=== PATIENT | female | born 1945 | race Caucasian/White ===

== ENCOUNTER 2018-05-21 04:25 | Emergency (ER) | payer MEDICARE ==
[2018-05-21 04:34] VITALS: BMI 22.2
[2018-05-21 04:39] VITALS: RESP 18
--- NOTE | 2018-05-21 05:04 | ED PDOC ---
Arrival/HPI - General Historian: Patient - History of Present Illness Time/Duration: 1-3 hours Symptom Onset: Sudden Activities at Onset: Light Context: Home <Batsheva Olivas - Last Filed: 05/21/18 06:23> <Diaz Collins DO - Last Filed: 05/22/18 11:11> - General Chief Complaint: Finger,Hand,&Wrist Time Seen by Provider: 05/21/18 04:29 - History of Present Illness Narrative History of Present Illness (Text): 05/21/18 05:00 This is a 72 year old female with PMH of HT, OA, fibromyalgia, carpal tunnel syndrome, 3 herniated discs and vertigo presenting to the ER for blue discoloration and swelling of her right hand thumb. Patient states she noticed her thumb swollen, tender and discolored and has no recollection of inciting event or trauma. She took aspirin when symptoms began. She states symptoms have improved since noticing her thumb earlier today. She denies CP, SOB, fevers, nausea, abdominal pain, back pain, urinary complaints, recent sickness, and chills. PMD is Carrol Monreal ([email or web address]) Past Medical History - Provider Review Nursing Documentation Reviewed: Yes - Cardiac Hx Hypertension: Yes Hx Mitral Valve Prolapse: Yes Hx Peripheral Edema: Yes (1 YR AGO) - Pulmonary Hx Bronchitis: Yes - Neurological Hx Vertigo: Yes - HEENT Hx Cataracts: Yes - Renal Other/Comment: KIDNEY CYST LEFT - Integumentary Other/Comment: DRY SKIN - Musculoskeletal/Rheumatological Hx Fractures: Yes (VETEBRAE) Hx Herniated Disk: Yes (LUMBAR) Hx Osteoarthritis: Yes Hx Osteoporosis: Yes Other/Comment: FIBROMYALGIA CARPAL ANDREW BILAT - Genitourinary/Gynecological Other/Comment: URINARY FREQUENCY DROPPED BLADDER - Psychiatric Hx Substance Use: No - Surgical History Hx Hysterectomy: Yes (1989) Other/Comment: OOPHORECTOMY ECTOPIC PREG - Anesthesia Hx Anesthesia: Yes Hx Anesthesia Reactions: Yes (NAUSEA VOMITTING) Hx Malignant Hyperthermia: No <Batsheva Olivas - Last Filed: 05/21/18 06:23> Family/Social History - Physician Review Nursing Documentation Reviewed: Yes Family/Social History: Unknown Family HX Smoking Status: Never Smoked Hx Alcohol Use: No Hx Substance Use: No <Batsheva Olivas - Last Filed: 05/21/18 06:23> Allergies/Home Meds <Bathseva Olivas - Last Filed: 05/21/18 06:23> <Diaz Collins DO - Last Filed: 05/22/18 11:11> Allergies/Adverse Reactions: Allergies Penicillins Allergy (Verified 05/21/18 04:38) RASH Home Medications: Home Meds Medication Instructions Recorded Confirmed Atenolol 25 mg PO DAILY 03/13/14 05/21/18 Losartan Potassium 100 mg PO DAILY 03/13/14 05/21/18 Aspirin [Aspir 81] 81 mg PO DAILY 03/17/14 05/21/18 Hydrochlorothiazide [Microzide] 12.5 mg PO DAILY 05/21/18 05/21/18 Review of Systems - Physician Review All systems were reviewed & negative as marked: Yes - Review of Systems Constitutional: Normal. absent: Fevers Eyes: Normal ENT: Normal Respiratory: Normal. absent: SOB Cardiovascular: Normal. absent: Chest Pain Gastrointestinal: Normal. absent: Abdominal Pain, Nausea, Vomiting Genitourinary Female: Normal. absent: Dysuria Musculoskeletal: Normal Skin: Other (right hand thumb swelling and discoloration) Neurological: Normal Psychiatric: Normal <Batsheva Olivas - Last Filed: 05/21/18 06:23> Physical Exam Vital Signs Reviewed: Yes Temperature: Afebrile Blood Pressure: Hypertensive Pulse: Regular Respiratory Rate: Normal Appearance: Positive for: Well-Appearing, Non-Toxic, Comfortable Pain Distress: None Mental Status: Positive for: Alert and Oriented X 3 - Systems Exam Head: Present: Atraumatic, Normocephalic Pupils: Present: PERRL Extroacular Muscles: Present: EOMI Conjunctiva: Present: Normal Mouth: Present: Moist Mucous Membranes Neck: Present: Normal Range of Motion Respiratory/Chest: Present: Clear to Auscultation, Good Air Exchange. No: Respiratory Distress, Accessory Muscle Use Cardiovascular: Present: Regular Rate and Rhythm, Normal S1, S2. No: Murmurs Abdomen: Present: Normal Bowel Sounds. No: Tenderness, Distention, Peritoneal Signs Back: Present: Normal Inspection Upper Extremity: Present: Normal Inspection. No: Cyanosis, Edema Lower Extremity: Present: Normal Inspection. No: Edema Neurological: Present: GCS=15, CN II-XII Intact, Speech Normal Skin: Present: Warm, Other (right hand thumb has swelling at the MCP and DIP joints and blue discoloration ). No: Rashes Psychiatric: Present: Alert, Oriented x 3, Normal Insight, Normal Concentration <Batsheva Olivas - Last Filed: 05/21/18 06:23> Vital Signs Temp Pulse Resp BP Pulse Ox 05/21/18 09:19 98 F 86 18 140/90 98 05/21/18 07:23 98.1 F 92 H 18 149/91 H 99 05/21/18 04:38 98.4 F 88 18 168/97 H 98 Medical Decision Making <Batsheva Olivas - Last Filed: 05/21/18 06:23> - Transfer of Care Patient signed out to Dr:: Misbah Other: pending labs, UA and CT <Diaz Collins DO - Last Filed: 05/22/18 11:11> ED Course and Treatment: 05/21/18 05:06 Impression: This is a 72 year old female with PMH of OA, fibromyalgia, carpal tunnel syndrome, and 3 herniated discs presenting to the ER for blue discoloration and swelling of her right hand thumb. Differential not limited to: Right hand thumb fracture vs embolism vs cellulitis vs osteomyelitis Plan: -Right hand thumb xray -PT/PTT -CT right upper extremity Progress: (Batsheva Olivas) - Lab Interpretations Lab Results: 05/21/18 05:56 05/21/18 05:56 Lab Results 05/21/18 05:56: PT 11.5, INR 1.00, APTT 31.4 05/21/18 05:56: WBC 8.6, RBC 4.63, Hgb 13.8, Hct 39.3, MCV 84.9, MCH 29.8, MCHC 35.1, RDW 12.2, Plt Count 272, MPV 9.5, Gran % 80.2 H, Lymph % (Auto) 14.4 L, [place] % (Auto) 5.1, Eos % (Auto) 0.1 L, Baso % (Auto) 0.2, Gran # 6.92 H, Lymph # (Auto) 1.2, [place] # (Auto) 0.4, Eos # (Auto) 0.0, Baso # (Auto) 0.02 05/21/18 05:56: Sodium 141, Potassium 3.4 L, Chloride 99, Carbon Dioxide 29, Anion Gap 17, BUN 16, Creatinine 0.7, Est GFR ( Amer) > 60, Est GFR (Non- Af Amer) > 60, Random Glucose 114 H, Calcium 9.4, Total Bilirubin 0.6, AST 35, ALT 20, Alkaline Phosphatase 78, Total Protein 7.7, Albumin 4.6, Globulin 3.2, Albumin/Globulin Ratio 1.4 - RAD Interpretation Radiology Orders: 05/21/18 04:59 HAND RIGHT THUMB [RAD] Stat 05/21/18 05:34 EXT UPPER WITH CONTRAST RIGHT [CT] Stat - PA / HISTORIC SITE ADMINISTRATOR / Resident Statement / has reviewed & agrees with the documentation as recorded. / has examined the patient and agrees with the treatment plan. <Batsheva Olivas - Last Filed: 05/21/18 06:23> Disposition/Present on Arrival - Present on Arrival History of DVT/PE: No History of Uncontrolled Diabetes: No Urinary Catheter: No History of Decub. Ulcer: No History Surgical Site Infection Following: None <Batsheva Olivas - Last Filed: 05/21/18 06:23> - Present on Arrival Any Indicators Present on Arrival: No - Disposition Have Diagnosis and Disposition been Completed?: Yes Disposition Time: 07:00 <Diaz Collins DO - Last Filed: 05/22/18 11:11> - Disposition Diagnosis: Superficial bruising of finger Disposition: HOME/ ROUTINE Condition: STABLE Discharge Instructions (ExitCare): Contusion (DC) Forms: [employer] (Slovenian)
[2018-05-21 06:21] LABS: BASO # 0.02 K/mm3 (0.0-2.0); BASO % 0.2 % (0.0-3.0); EOS % 0.1 % (1.5-5.0); GRAN # 6.92 (1.4-6.5); GRAN % 80.2 % (50.0-68.0); HEMOGLOBIN 13.8 g/dL (12.0-16.0); LYMPH # 1.2 (1.2-3.4); LYMPH % 14.4 % (22.0-35.0); MEAN CELL VOLUME 84.9 fl (80.0-105.0); MEAN CORPUSCULAR HEMOGLOBIN 29.8 pg (25.0-35.0); MEAN CORPUSCULAR HGB CONC 35.1 g/dl (31.0-37.0); MEAN PLATELET VOLUME 9.5 fl (7.0-11.0); MONO # 0.4 (0.1-0.6); MONO % 5.1 % (1.0-6.0); RBC 4.63 10^6/uL (3.5-6.1); RED CELL DISTRIBUTION WIDTH 12.2 % (11.5-14.5); WHITE BLOOD COUNT 8.6 10^3/ul (4.5-11.0)
[2018-05-21 06:31] LABS: PARTIAL THROMBOPLASTIN TIME 31.4 Seconds (25.1-36.5); PROTHROMBIN TIME 11.5 SECONDS (9.4-12.5)
[2018-05-21] MEDS ORDERED: Iohexol 350 MG/100 ML VIAL ONE (06:42)
[2018-05-21 06:48] LABS: ALB/GLOB RATIO 1.4 (1.1-1.8); ALBUMIN 4.6 g/dL (3.0-4.8); ALT/SGPT 20 U/L (7-56); AST/SGOT 35 U/L (14-36); BLOOD UREA NITROGEN 16 mg/dL (7-21); CALCIUM 9.4 mg/dL (8.4-10.5); GFR AFRICAN-AMERICAN > 60; GFR NON-AFRICAN AMERICAN > 60
--- NOTE | 2018-05-21 07:12 | ED PDOC ---
Physical Exam Vital Signs Temp Pulse Resp BP Pulse Ox 05/21/18 07:23 98.1 F 92 H 18 149/91 H 99 05/21/18 04:38 98.4 F 88 18 168/97 H 98 Medical Decision Making ED Course and Treatment: 05/21/18 07:11 Case endorsed to me by Dr. Collins. Patient is a 72 year old female with PMH of HTN, OA, fibromyalgia, and carpal tunnel syndrome who presented to the ER for blue/purple discoloration and swelling of her right hand thumb. Patient states she noticed her thumb swollen and discolored and has no recollection of inciting event or trauma. Currently pending CT of the right hand. 05/21/18 09:10 FINDINGS: There is no osseous fracture. No lytic or blastic osseous lesion is appreciated. Please note that the examination was not performed as an arteriogram and sensitivity for detection of arterial filling defect is limited. No gross vascular abnormality is appreciated. There is no soft tissue mass or fluid collection identified. IMPRESSION: Unremarkable examination. Please note that the examination is of limited sensitivity for detection of peripheral digital vascular embolus. Patient re-evaluated, volar aspect only with ecchymosis, nontender, motor and ROM intact. Patient states the bruising has improved while she has been in the ED. Sensation intact. Patient notes she bruises spontaneously on her legs sometimes. Will discharge, patient states she can follow up with her PMD, instructed to return to the ED immediately for worsening pain, bruising, black/ green discoloration, or any other problem. - Lab Interpretations Lab Results: 05/21/18 05:56 05/21/18 05:56 Lab Results 05/21/18 05:56: PT 11.5, INR 1.00, APTT 31.4 05/21/18 05:56: WBC 8.6, RBC 4.63, Hgb 13.8, Hct 39.3, MCV 84.9, MCH 29.8, MCHC 35.1, RDW 12.2, Plt Count 272, MPV 9.5, Gran % 80.2 H, Lymph % (Auto) 14.4 L, [place] % (Auto) 5.1, Eos % (Auto) 0.1 L, Baso % (Auto) 0.2, Gran # 6.92 H, Lymph # (Auto) 1.2, [place] # (Auto) 0.4, Eos # (Auto) 0.0, Baso # (Auto) 0.02 05/21/18 05:56: Sodium 141, Potassium 3.4 L, Chloride 99, Carbon Dioxide 29, Anion Gap 17, BUN 16, Creatinine 0.7, Est GFR ( Amer) > 60, Est GFR (Non- Af Amer) > 60, Random Glucose 114 H, Calcium 9.4, Total Bilirubin 0.6, AST 35, ALT 20, Alkaline Phosphatase 78, Total Protein 7.7, Albumin 4.6, Globulin 3.2, Albumin/Globulin Ratio 1.4 - RAD Interpretation Radiology Orders: 05/21/18 04:59 HAND RIGHT THUMB [RAD] Stat 05/21/18 05:34 EXT UPPER WITH CONTRAST RIGHT [CT] Stat - Scribe Statement The provider has reviewed the documentation as recorded by the Scribe Gloria Botello Provider Scribe Attestation: All medical record entries made by the Scribe were at my direction and personally dictated by me. I have reviewed the chart and agree that the record accurately reflects my personal performance of the history, physical exam, medical decision making, and the department course for this patient. I have also personally directed, reviewed, and agree with the discharge instructions and disposition. Disposition/Present on Arrival - Present on Arrival Any Indicators Present on Arrival: No History of DVT/PE: No History of Uncontrolled Diabetes: No Urinary Catheter: No History of Decub. Ulcer: No History Surgical Site Infection Following: None - Disposition Have Diagnosis and Disposition been Completed?: Yes Diagnosis: Superficial bruising of finger Disposition: HOME/ ROUTINE Disposition Time: 09:13 Patient Plan: Discharge Condition: STABLE Discharge Instructions (ExitCare): Contusion (DC) Forms: [employer] (Macedonian)
--- NOTE | 2018-05-21 08:58 | CT ---
Date of service: 05/21/2018 PROCEDURE: CT right hand HISTORY: sudden discoloration of R thumb - ? emboli COMPARISON: Not available TECHNIQUE: 1.25 mm contiguous axial sections were acquired through the right hand. Sagittal and coronal images were reformatted from the axial scan. Contrast administered: 100 mL of Omnipaque 350 Total exam DLP: 194.91 mGy-cm This CT exam was performed using 1 or more of the following dose reduction techniques: Automated exposure control, adjustment of the mA and/or kV according to patient size, and/or use of iterative reconstruction technique. FINDINGS: There is no osseous fracture. No lytic or blastic osseous lesion is appreciated. Please note that the examination was not performed as an arteriogram and sensitivity for detection of arterial filling defect is limited. No gross vascular abnormality is appreciated. There is no soft tissue mass or fluid collection identified. IMPRESSION: Unremarkable examination. Please note that the examination is of limited sensitivity for detection of peripheral digital vascular embolus.
[2018-05-21 09:19] VITALS: BP 140/90; PULSE 86; TEMP 98; O2SAT 98
--- NOTE | 2018-05-21 10:05 | RAD ---
Date of service: 05/21/2018 PROCEDURE: Right Thumb radiographs. HISTORY: Swelling and discoloration COMPARISON: None. TECHNIQUE: AP radiograph of the right hand, as well as spot oblique and lateral images of thumb were obtained. FINDINGS: RIGHT THUMB: Normal right thumb, without fracture or focal lesion. Remainder of the right hand (as seen on the AP view) grossly unremarkable. JOINTS: Normal. SOFT TISSUES: Normal. OTHER FINDINGS: None. IMPRESSION: Normal right thumb radiographs.
== END 2018-05-21 09:19 | disposition home or self-care (01) ==
LOC: ED 04:25
DX: S60.011A Contusion of right thumb without damage to nail, initial encounter (principal); X58.XXXA Exposure to other specified factors, initial encounter
CPT/HCPCS: 73140; 73201; 80053; 85025; 85610; 85730; 99284; Q9967

== ENCOUNTER 2019-02-19 12:04 | Outpatient (CLI) | payer MEDICARE | END 2019-02-19 12:05 | disposition home or self-care (01) | LOC: RAD 12:04 ==